=== PATIENT | female | born 1975 | race Hispanic/Latino ===

== ENCOUNTER 2018-07-11 12:52 | Emergency (ER) | payer MEDICAID ==
[2018-07-11 13:58] LABS: APPEARANCE,URINE Cloudy (CLEAR); BILIRUBIN,URINE Negative (NEGATIVE); COLOR,URINE Yellow (YELLOW); GLUCOSE, URINE (UA) Negative (NEGATIVE); KETONES,URINE Negative (NEGATIVE); LEUKOCYTE ESTERASE ,URINE Large (NEGATIVE); NITRATE,URINE Positive (NEGATIVE); OCCULT BLOOD,URINE Small (NEGATIVE); PH,URINE 5.5 (5.0-8.0); PROTEIN,URINE Negative (NEGATIVE)
[2018-07-11 14:03] LABS: HCG,QUAL RESULT NEGATIVE (NEGATIVE)
[2018-07-11 14:08] LABS: RBC,URINE None Seen /HPF (0-1)
[2018-07-11 14:09] LABS: BACTERIA,URINE Many /HPF (None Seen); SQUAMOUS EPITHELIAL CELL,UR Few /HPF (0-2)
[2018-07-11 14:10] LABS: TRICHOMONAS,URINE Few /LPF (None Seen)
[2018-07-11] MEDS ORDERED: LIDOCAINE HCL-MPF 1% 2ML VIAL ONE (14:49)
[2018-07-11] MEDS ORDERED: CEFTRIAXONE SODIUM 1 GM ONE (14:49)
== END 2018-07-11 15:33 | disposition home or self-care (01) ==
LOC: EDH 12:52
DX: N10 Acute pyelonephritis (principal); Z90.710 Acquired absence of both cervix and uterus; Z98.890 Other specified postprocedural states
CPT/HCPCS: 72131; 81001; 81025; 96372; 99285; J0696; J3490

== ENCOUNTER 2022-06-25 18:40 | Emergency (ER) | payer OTHER, MEDICAID ==
[~2022-06-25] VITALS: Ht 152.4 cm; Wt 63.5 kg
[2022-06-25 19:00] VITALS: BP 124/72
[2022-06-29] MEDS ORDERED: PANT40TA PO (08:57)
== END 2022-06-25 19:23 | disposition left against medical advice (07) ==
LOC: EDH 18:40
DX: Z04.1 Encounter for examination and observation following transport accident (principal); Z53.21 Procedure and treatment not carried out due to patient leaving prior to being seen by health care provider

== ENCOUNTER 2022-08-24 15:32 | Emergency (ER) | payer MEDICAID ==
[~2022-08-24] VITALS: Ht 152.4 cm; Wt 63.5 kg
[~2022-08-24 15:32] MED LIST: PANT40TA PO; TAMS-1 PO
[2022-08-24 16:06] LABS: BASOPHILS % (AUTO) 0.7 % (0.0-5.0); EOSINOPHILS % (AUTO) 3.9 % (0.0-8.0); HEMATOCRIT 41.7 % (36-48); LYMPHOCYTES % (AUTO) 22.3 % (21.0-51.0); MEAN CORPUSCULAR HEMOGLOBIN 27.1 pg (27.0-33.0); MEAN CORPUSCULAR HGB CONC 31.4 g/dL (32.0-36.0); MEAN CORPUSCULAR VOLUME 86.2 fL (79-99); MONOCYTES % (AUTO) 8.4 % (3.0-13.0); NEUTROPHILS % (AUTO) 64.2 % (40.0-77.0); PLATELET COUNT (AUTO) 321 K/uL (130-400); RED BLOOD CELL COUNT(AUTO) 4.84 MIL/uL (4.00-5.50); RED CELL DISTRIBUTION WIDTH 13.5 % (11.0-15.5); WHITE BLOOD COUNT (AUTO) 8.2 K/uL (4.8-10.8)
[2022-08-24 16:10] LABS: APPEARANCE,URINE CLOUDY (CLEAR); BILIRUBIN,URINE NEGATIVE (NEGATIVE); COLOR,URINE COLORLESS (YELLOW); GLUCOSE, URINE (UA) NEGATIVE (NEGATIVE); KETONES,URINE NEGATIVE (NEGATIVE); LEUKOCYTE ESTERASE ,URINE 500 Leu/uL (NEGATIVE); NITRATE,URINE 1+ (NEGATIVE); OCCULT BLOOD,URINE LARGE (NEGATIVE); PH,URINE 5.5 (5.0-8.0); PROTEIN,URINE 10 mg/dL (NEGATIVE); UROBILINOGEN,URINE 0.2 mg/dL (0.2-1.0)
[2022-08-24 16:15] LABS: CREATININE 0.9 mg/dL (0.5-1.5); POTASSIUM 4.2 mmol/L (3.5-5.1)
[2022-08-24 16:20] LABS: ALBUMIN 4.3 g/dL (3.5-5.0); TOTAL PROTEIN, SERUM 9.5 g/dL (6.0-8.3)
[2022-08-24 16:22] LABS: HCG,QUALITATIVE URINE NEGATIVE (NEGATIVE)
[2022-08-24 16:25] LABS: BACTERIA,URINE MOD /HPF (None Seen); MUCUS,URINE RARE LPF (None Seen); OTHER CASTS, URINE 2 /LPF (None Seen); RBC,URINE 51-100 /HPF (0-1); SQUAMOUS EPITHELIAL CELL,UR MOD /HPF (0-2); WBC,URINE >100 /HPF (0-1); YEAST,URINE BUDDING RARE /HPF (None Seen)
[2022-08-24] MEDS ORDERED: 0.9%NACL 1000ML 1,000 ML IV ONE (16:30)
[2022-08-24] MEDS ORDERED: KETOROLAC 15MG/ML VIAL (15MG/ML) IV ONE (16:30)
[2022-08-24] MEDS ORDERED: CEFTRIAXONE 1G VIAL IVP SCH (17:00)
[2022-08-24] MEDS ORDERED: IOHEXOL 350 MG/ML 100ML INFUS..BTL IV ONE (17:04)
[2022-08-24] MEDS ORDERED: ACET-66 PO (17:51)
[2022-08-24] MEDS ORDERED: CEPH500B PO (17:51)
[2022-08-24 18:00] VITALS: BP 133/76
== END 2022-08-24 18:57 | disposition home or self-care (01) ==
LOC: EDH 15:32
DX: N39.0 Urinary tract infection, site not specified (principal); N99.522 Malfunction of incontinent external stoma of urinary tract; Z90.710 Acquired absence of both cervix and uterus
CPT/HCPCS: 99285; 74177; 96374; 96361; 96375; 80053; 85025; 87040 ×2; 87077; 87088; 87186; 83605; 81001; 81025; 36415; J7030; J0696; J1885; Q9967

== ENCOUNTER 2022-08-30 21:06 | Emergency (ER) | payer MEDICAID ==
[~2022-08-30] VITALS: Ht 152.4 cm; Wt 61.2 kg
[~2022-08-30 21:06] MED LIST changes: +ACET-66 PO; +CEPH500B PO
[2022-08-30 21:41] LABS: BASOPHILS % (AUTO) 0.3 % (0.0-5.0); EOSINOPHILS % (AUTO) 4.9 % (0.0-8.0); LYMPHOCYTES % (AUTO) 16.2 % (21.0-51.0); MEAN CORPUSCULAR HEMOGLOBIN 27.1 pg (27.0-33.0); MEAN CORPUSCULAR HGB CONC 32.1 g/dL (32.0-36.0); MEAN CORPUSCULAR VOLUME 84.6 fL (79-99); MONOCYTES % (AUTO) 6.3 % (3.0-13.0); NEUTROPHILS % (AUTO) 71.8 % (40.0-77.0); PLATELET COUNT (AUTO) 338 K/uL (130-400); RED BLOOD CELL COUNT(AUTO) 4.61 MIL/uL (4.00-5.50); RED CELL DISTRIBUTION WIDTH 13.8 % (11.0-15.5); WHITE BLOOD COUNT (AUTO) 13.7 K/uL (4.8-10.8)
[2022-08-30 21:45] LABS: APPEARANCE,URINE CLOUDY (CLEAR); BILIRUBIN,URINE NEGATIVE (NEGATIVE); COLOR,URINE LIGHT-ORANGE (YELLOW); GLUCOSE, URINE (UA) NEGATIVE (NEGATIVE); KETONES,URINE NEGATIVE (NEGATIVE); LEUKOCYTE ESTERASE ,URINE 500 Leu/uL (NEGATIVE); NITRATE,URINE 2+ (NEGATIVE); OCCULT BLOOD,URINE LARGE (NEGATIVE); PH,URINE 5.5 (5.0-8.0); PROTEIN,URINE 70 mg/dL (NEGATIVE); UROBILINOGEN,URINE 0.2 mg/dL (0.2-1.0)
[2022-08-30 21:58] LABS: CREATININE 0.9 mg/dL (0.5-1.5); POTASSIUM 3.7 mmol/L (3.5-5.1)
[2022-08-30 22:04] LABS: ALBUMIN 3.6 g/dL (3.5-5.0); TOTAL PROTEIN, SERUM 8.2 g/dL (6.0-8.3)
[2022-08-30 22:10] LABS: BACTERIA,URINE MANY /HPF (None Seen); MUCUS,URINE RARE LPF (None Seen); RBC,URINE TNTC /HPF (0-1); SQUAMOUS EPITHELIAL CELL,UR RARE /HPF (0-2); WBC,URINE TNTC /HPF (0-1)
[2022-08-30] MEDS ORDERED: 0.9%NACL 1000ML 2,000 ML IV ONE (23:00)
[2022-08-30] MEDS ORDERED: IBUP-1493 PO (23:26)
[2022-08-30] MEDS ORDERED: OSEL75 PO (23:26)
[2022-08-30] MEDS ORDERED: KETOROLAC 30MG VIAL (30MG/ML) IVP ONE (23:30)
[2022-08-30] MEDS ORDERED: KETOROLAC 30MG VIAL (30MG/ML) ONE (23:30)
[2022-08-30 23:50] VITALS: BP 120/75
== END 2022-08-30 23:52 | disposition home or self-care (01) ==
LOC: EDH 21:06
DX: N39.0 Urinary tract infection, site not specified (principal); N20.0 Calculus of kidney; Z43.6 Encounter for attention to other artificial openings of urinary tract; Z20.822 Contact with and (suspected) exposure to COVID-19; Z79.899 Other long term (current) drug therapy; Z98.890 Other specified postprocedural states
CPT/HCPCS: 99284; 96374; 71045; 87635; 96361; 82550; 84484; 80053; 85025; 87040 ×2; 87077 ×2; 87088; 87186 ×2; 87804 ×2; 83605; 81001; 36415; C9803; J7030; J1885 ×2